=== PATIENT | female | born 1985 | race Caucasian/White ===

== ENCOUNTER 2020-12-30 13:07 | Emergency (ER) | payer OTHER ==
[2020-12-30] MEDS ORDERED: Sodium Chloride 0.9% 1,000 ML IV ONE (13:47)
[2020-12-30] MEDS ORDERED: Terbutaline 1 MG/ML SDV SUBCUT ONE (14:09)
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
== END 2020-12-30 14:19 ==
LOC: JP.ED 13:07
DX: O9A.23 Injury, poisoning and certain other consequences of external causes complicating the puerperium (principal); S40.012A Contusion of left shoulder, initial encounter; Z3A.28 28 weeks gestation of pregnancy; Z79.82 Long term (current) use of aspirin; V49.40XA Driver injured in collision with unspecified motor vehicles in traffic accident, initial encounter
CPT/HCPCS: 36415; 76815; 80053; 81001; 85027; 86850; 86900; 86901; 96372; 99282; 99284; J7030